=== PATIENT | male | born 2000 | race Hispanic/Latino ===

== ENCOUNTER 2024-01-07 09:52 | Emergency (ER) | payer BC ==
[~2024-01-07] VITALS: Ht 182.9 cm; Wt 96.2 kg
[2024-01-07] MEDS: KETOROLAC TROMETHAMINE 60 MG/2 ML VIAL IM ONE (10:30)
[2024-01-07] MEDS ORDERED: KETOROLAC TROMETHAMINE 60 MG/2 ML VIAL ONE (10:31)
[2024-01-07] MEDS ORDERED: NAPROXEN250 MG PO (11:17)
[2024-01-07 11:32] VITALS: BP 134/68; PULSE 71; RESP 15; O2SAT 100
== END 2024-01-07 11:33 | disposition home or self-care (01) ==
LOC: ER 10:11
DX: S83.8X2A Sprain of other specified parts of left knee, initial encounter (principal); Y92.89 Other specified places as the place of occurrence of the external cause
CPT/HCPCS: 73562; 99283; J1885